=== PATIENT | male | born 1985 | race Hispanic/Latino ===

== ENCOUNTER → 2025-09-13 08:23 | Outpatient (REF) | payer BC, SELFPAY ==
--- NOTE | 2025-09-13 14:28 | PN.DE ---
Addendum entered by Serene Cox RN 09/13/25 15:10:
Addendum - he states he has met his deductible for insurance. He has a $5000 deductible, he pays the first $1000 then has another policy to cover the $4000 for him.
Next appt - discuss other dinner options from [facility] such as salad and protein, other ready to eat snacks
Original Note:
Diabetes Education
- -
09/13/2025 DIABETES EDUCATION CONSULT
I met with with Kofi today for 1:1 diabetes education, referred by Pricilla Rincon. He is newly diagnosed with DM2 in December, was at [facility] with an HbA1c of 12%, d/c with Novolin R Flex Pen 18 units BID. He has been wearing a new CGM
for 7 days. I reviewed the reports with him, and he provided permission for our department to review the CGM reports.
GMI 6.8%
TIR 80%
TAR 181=25- 20%
Post meal spikes are 200 after lunch and 209 after dinner
He admits to not sleeping well, may nap for a few hours after work and may or may not sleep well at night. He is not willing to cook and rushing out the door to get to work by 7AM. Stops at [facility] only for food. He also admits to occasionally
forgetting his insulin which leads him to take while eating. He is on his feet every day, still feels very tired once home but may occasionally do a light saber cardio video. We discussed the importance of sleep, lack of sleep can lead to elevated
blood sugar and lethargy; the importance of cardio and weight lifting to lower blood sugar.
His diet consists breakfast: quesadilla with chicken, cheese, and BBQ sauce, lunch is chicken noodle soup, dinner is a sandwich, cereal, or pizza. He snacks on a candy bar mid day or crackers at night. We discussed the high carb content of his
diet, BBQ sauce and candy is high in sugar, pizza high in fat and will keep his BS elevated for 8+ hours. Drinks 1/2 gallon water per day with non caffeinated ESTHER drops.
He self adjusts his insulin depending on his blood sugar; is currently taking 14 units Novolin Regular BID, but takes right before a meal. If his BS is 100-110 at dinner, he will not take his nighttime dose or reduce to 10 units. I provided
education Novolin R is to be taken 30 minutes prior to a meal and it is to work reducing blood sugar from his meal. He verbalized understanding, stated he was not aware of this. We reviewed proper insulin storage and injection technique, he is
doing this correctly. He states once his BS was 65, otherwise no low blood sugar. We did discuss hypoglycemia protocol.
He lives at home with his sister (who has epilepsy, on Medicaid) and his mother who is bed bound and disabled. No one in the household cooks, he is only willing to stop at [facility] for food. He works at a [employer] 7:30am - 3pm, has trouble
sleeping at night and states that he is afraid of oversleeping and rushing out the door to get to work.
We discussed insulin technology - he is not interested in a pump. We discussed adding fruits and vegetables to his diet for nutrients and energy. He agreed to the following changes:
Goals:
take 14 units Novolin R 30 minutes consistently before breakfast and dinner
Cardio 30 minutes 3 days a week beginning this weekend
Eliminate candy as a snack, replace with fruit cup packed in water and handful of walnuts
Breakfast - switch to egg breakfast burrito (no BBQ sauce)
His next appointment for 1:1 education is 09/27 at 10AM. Has appt prior with Pricilla Rincon at [facility] same day at 9AM.
== END ==
LOC: DES 08:23
PROVIDERS: ATTENDING PHYSICIAN Nurse Practitioner Family
DX: E11.65 Type 2 diabetes mellitus with hyperglycemia (principal)
CPT/HCPCS: 99078

== ENCOUNTER → 2025-09-27 08:16 | Outpatient (REF) | payer BC, SELFPAY ==
--- NOTE | 2025-09-28 15:21 | PN.DE ---
Diabetes Education
- -
09/27/2025 DIABETES EDUCATION CONSULT
Met with Kofi for 1:1 diabetes education follow up. Reviewing his CGM, his numbers improved:
GMI 6.4%
TIR 93%
High BS 7%
average glucose between 116-183.
Post meal spikes improved greatly, previously were 200+ no < 160 mg/dL majority of the time.
He changed breakfast to egg burrito, eating oatmeal with fruit cup at breakfast and snack, eliminated candy as a snack. Issue is he still feels hungry early AM.
He eats dinner 6pm, has a snack at 9pm, bed between 12am - 2am.
Brainstormed additional healthy snacks: hard boiled eggs, Ensure or [employer] Life protein shake.
Also discussed meal options (avoiding pizza, pasta, cheessteaks): Healthy Choice dinners with low carb and vegetables.
States he still feels lethargic, problem sleeping and lack of motivation. I encouraged him to contact PCP for follow to discuss depression and discuss labs for Vitamin B and D.
I will outreach in a month, he will decide later if he needs an additional coaching session.
He saw Farheen Rincon this morning. No medication changes; will see her again in November and she may recommend oral medications and/or Mounjaro. I sent Pricilla message on patient's progress.
== END ==
LOC: DES 08:16
PROVIDERS: ATTENDING PHYSICIAN Nurse Practitioner Family
DX: E11.65 Type 2 diabetes mellitus with hyperglycemia (principal)
CPT/HCPCS: 99078